=== PATIENT | female | born 1980 | race Caucasian/White ===

== ENCOUNTER 2019-03-21 07:30 | Outpatient (RCR) | payer OTHER, SELFPAY ==
--- NOTE | 2018-11-28 16:11 | PT.OIE ---
Current Diagnoses Pain in right hip (11/27/18) Stress incontinence (female) (male) (11/27/18) Other female genital prolapse (11/27/18) Provider Visit Care Team Role Provider Type Makeda Salazar DO Attending Provider Non-Staff Primary Care Provider Specialty: Medical Address: [address] [place] [address], [id number] Email: Physical Therapy Initial Evaluation PT-OP-A Visit Information Start: 11/27/18 15:45 Freq: Status: Active Protocol: Document 11/27/18 14:30 BS (Rec: 11/28/18 09:04 BS [id number]) Out-Patient Physical Therapy Visit Information Visit Information Visit Type Initial Evaluation Visit Start Time 14:30 Visit Stop Time 15:15 Total Visit Minutes 45 Visit Number 1 Evaluation Information Evaluation Date 11/27/18 PT-OP-B Current Condition Start: 11/27/18 15:45 Freq: Status: Active Protocol: Document 11/27/18 14:30 BS (Rec: 11/28/18 09:04 BS [id number]) Current Condition History of Current Condition Onset Date 10 years incontinence, 2-3 months ago R hip pain Current Complaints urinary incontinence, L hip pain History of Current Condition Pt complains of long standing urinary incontince that began around 10 years ago following the of her first child ( pt has 2 children, some vaginal tearing with 9# baby) . Pt reports that it has gradually worsened over the years and that she has leakage with coughing, sneezing, weightlifting, and running. Pt does state that she has had some constipation over the last year and has occasional painful intercouse with pain in lower abdomen, but only if after eating dairy. Pt denies a feeling of pelvic heaviness. Pt also complains of intermittent R anterior hip pain with deep squats and specifically with internal and external rotation of hip, such as with figure 4 stretch. R hip pain began 2-3 months ago with insidious onset and gradual increasing pain since. This has prevented pt from engaging in recreational weightlifting. 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 Prior Treatments and Tests Pt has been to physical therapy years ago for incontinence but has not been doing kegels because she does' t think they have helped. Xray for R hip pain, insignificant findings per pt report. Prior Functional Status Baseline Function- ADL's Independent Baseline Function- Mobility Independent Baseline Function- Work/School Independent Baseline Function- Recreation/Hobbies Independent Baseline Function- Other Independent with all daily activities but with urinary leakage for the last 10 years. Current Functional Impairments (Reported) Functional Limitations- ADL's Sitting, standing, stairs or walking without urinary leakage. 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 This is difficult for her to due to urinary incontinence. Functional Limitations- Recreation/ Pt unable to engage in Hobbies recreational exercise and weightlifting due to R hip pain and urinary incontinence. PT-OP-C Subjective Start: 11/27/18 15:45 Freq: Status: Active Protocol: Document 11/27/18 14:30 BS (Rec: 11/28/18 10:23 BS [id number]) OP-PT Subjective Patient Comments Patient Comments Pt wants states she wants to equally focus on R hip pain and stress incontinence. OP-PT Pain Assessment Pain Assessment Grid Paper Pain Assessment Grid Completed Yes Location Hip Pain Location Details R anterior hip (deep) Intensity 6 Scale Used Numeric (1 - 10) Description Sharp Frequency Intermittent Pain Aggravating Factors Changing Position Exercise Stair Climbing Bending Lifting Pain Alleviating Factors None Patient Stated Pain Goal reduce R hip pain so I can exercise! Comments Pain Comments R anterior hip pain is 0/10 at rest, but up to 6/10 with deep flexion or R hip IR/ER. PT-OP-E Functional Tests Start: 11/28/18 12:00 Freq: Status: Active Protocol: Document 11/27/18 14:30 BS (Rec: 11/28/18 12:02 BS [id number]) Functional Tests Other 1 Name of Test Double and Single Limb Squat Comment Hyperlordotic. Genuvalgum with RLE squat. PT-OP-I Pelvic Floor Start: 11/27/18 15:45 Freq: Status: Active Protocol: Document 11/27/18 14:30 AMB (Rec: 11/27/18 15:58 AMB [id number]) Pelvic Floor Assessment Urine Pelvic Floor Surgery No Leakage Size Small Leakage Cause Cough Exercise Sneeze Leaks Per Day with exercise Voiding Frequency 5x/day Nocturia 0 Pads Used In 24 Hours 1 Urine Pad Type Maxi Pad Bowel Bowel Surgery No Prolapse Cystocele Grade 2 Rectocele Grade 2 Perineal Descent Resting Absent Bearing Present Contraction Ability Voluntary Contraction Weak Voluntary Relaxation Moderate Manual Muscle Testing Left 2 Manual Muscle Testing Right 2 Manual Muscle Testing Anterior 1 Manual Muscle Testing Posterior 3 Muscle Endurance (Seconds) 8 Number of Quick Contractions In 10 6 Seconds Comments Pelvic Floor Comments Mild discomfort with palpation of R obterator internus. Does not radiate. Weak with anterior pelvic floor. PT-OP-J Posture/Palpation/Skin Start: 11/27/18 15:45 Freq: Status: Active Protocol: Document 11/27/18 14:30 BS (Rec: 11/28/18 10:23 BS [id number]) Posture Evaluation Position Standing Evaluation View Anterior/Posterior Head/C-Spine Posture Forward Head T-Spine Posture Neutral L-Spine Posture Increased Lordosis Shoulder Posture (L) Rounded (R) Rounded Pelvis Posture Anteriorly Tilted Knee Posture (L) Genu Recurvatum (R) Genu Recurvatum Comments Posture Comments Pt presents with forward head, rounded shoulder, and increased lumbar lordosis. She tends to stand with B knees in slight hyperextension. Palpation Assessment Location One Palpation Location R hip iliopsoas, rectus femoris Palpation Findings None/Normal Palpation Details No tenderness to palpation. Pt describes anterior hip pain location as deep. PT-OP-K Range of Motion Start: 11/27/18 15:45 Freq: Status: Active Protocol: Document 11/27/18 14:30 BS (Rec: 11/28/18 10:23 BS [id number]) Hip Goniometric Range of Motion Hip Measured in Degrees Right Passive Hip ROM WFL Yes Testing Position Supine Straight Leg Raise 90 Internal Rotation 32 External Rotation 25 Left Passive Hip ROM WFL Yes Testing Position Supine Straight Leg Raise 90 Internal Rotation 45 External Rotation 40 Hip ROM Limitations Comments PROM to B hips WFL and pain free with the exception of end range right hip ER/IR and R hip flexion with overpressue. Knee Goniometric Range of Motion Knee Measured in Degrees Right Patient Position Supine Left Knee ROM WFL Yes Patient Position Supine Knee ROM Limitations Comments B Knee ROM WFL and pain-free. In supine position, pt's relaxed knee position in slight hyperextension. PT-OP-L Special Tests Start: 11/27/18 15:45 Freq: Status: Active Protocol: Document 11/27/18 14:30 BS (Rec: 11/28/18 10:23 [id number]) Special Tests Hip Special Tests Straight Leg Raise Test Results Negative Comments Active and passive SLR negative for pain reproduction . Piriformis Test Results + for pain reproduction with RLE Comments Piriformis position resulted in R anterior hip pain, increased with OP. GIANA Test Results + for pain reproduction with RLE Comments Deep pain in R hip with GIANA. Limited hip abduction, ER in comparison to L hip testing. Scour Test Test Results + for pain reproduction RLE Comments Positive for pain reproduction on RLE at approximately 45 deg of ER with scour. PT-OP-M Strength Start: 11/27/18 15:45 Freq: Status: Active Protocol: Document 11/27/18 14:30 BS (Rec: 11/28/18 10:23 [id number]) Hip Strength Hip Manual Muscle Testing Right Flexion (L2) 5 Normal Extension (S1) 5 Normal Abduction 5 Normal External Rotation 4+ Good+ Internal Rotation 4+ Good+ Comments R hip discomfort with ER/IR 4+/5. Left Flexion (L2) 5 Normal Extension (S1) 5 Normal Abduction 5 Normal External Rotation 5 Normal Internal Rotation 5 Normal Comments All strong and pain-free with LLE. Knee Strength Knee Manual Muscle Testing Right Flexion (S2) 5 Normal Extension (L3) 5 Normal Comments Pain-free Left Flexion (S2) 5 Normal Extension (L3) 5 Normal Comments Pain-free PT-OP-Q Treatments Start: 11/27/18 15:45 Freq: Status: Active Protocol: Document 11/27/18 14:30 BS (Rec: 11/28/18 10:23 [id number]) Self-Care/Home Management Treatment Education Patient Education Body Mechanics Home Exercise Program Posture Other Education Pt education regarding kegel exercises with contract 2-3/ relax. Pt educated on avoiding deep hip flexion to avoid further irritation of R hip pain. PT-OP-T Assessment and Plan Start: 11/27/18 15:45 Freq: Status: Active Protocol: Document 11/27/18 14:30 BS (Rec: 11/28/18 10:23 [id number]) Physical Therapy Assessment Rehab Potential Rehabilitation Potential Good Evaluation Complexity Number of Personal Factors/Comorbidities 0 Number of Body Systems Impaired 1-2 Clinical Presentation at Evaluation Stable Impairments Impairments Activity Tolerance Functional Activities Functional Mobility Pain Posture ROM Strength Other Concerns Barriers to Rehabilitation Pt's chronic history of urinary incontinence is a potential barrier to rehabilitation. Overall, pt is young and lives an active lifestyle. She is motivated to perform necessary exercises for pelvic floor strengthening and R hip so that she is able to exercise without leakage or R hip pain. Goals Three Impairment ROM Chcf Goal (LTG) R hip ROM (ER/IR) to be pain- free and comparable to L hip ER/IR ROM to reduce pain with independent stretching program . LTG Duration 10 weeks Two STG Duration Strength Chcf Goal (LTG) Activation and strength of pelvic floor musculature to improve at least 4+/5 to reduce urinary leakage with activities that increase intrabdomial pressure. LTG Duration 10 weeks One Impairment HEP Short Term Goal (STG) Pt will become independent with HEP for pelvic floor and hip strengthening to maximize rehabilitation potential outside of formal physical therapy sessions. STG Duration 4 weeks Chcf Goal (LTG) Pt will complete a deep squat without experiencing R anterior hip pain so that she is able to return to recreational weightlifting. LTG Duration 10 weeks Assessment Summary Assessment Pt is a 38 year old female who presents with new onset R anterior hip pain and complaints of chronic (10 year ) urinary stress incontinence limitating her ability to engage in recreational weightlifting and perform daily activties without experiencing urinary leakage. Pt has limitations in R hip ROM and strength contributing to LE muscle imbalance and R hip pain. Pt appears to be young, healthy, and motivated to comply with physical therapy in order to return to PLOF without R hip pain and urinary incontinence. Pt benefits from skilled physical therapy focusing on LE and pelvic floor strengthening, postural education, and use of proper body mechanics with functional activities to address impairments as listed above. Physical Therapy Plan Frequency and Duration Frequency of Treatment 1-2x/week Duration of Treatment 10 weeks Plan of Care Start Date 11/28/18 Plan of Care End Date 02/06/19 Therapeutic Interventions Therapeutic Interventions Gait Training Home Exercise Program Joint Mobilizations Manual Therapy Neuromuscular Re-education Patient/Caregiver Education Self-Care/Home Management Soft Tissue Mobilization Taping Therapeutic Activities Therapeutic Exercises Modalities Biofeedback Cold Pack/Ice Massage Electric Stimulation Hot Packs Traction- Mechanical Next Visit Focus/Plan Next Note Type Treatment Note Next Visit Plan Continue to assess R anterior hip pain. Begin hip strengthening and pelvic floor biofeedback.
--- NOTE | 2018-12-07 09:43 | PT.OTN ---
Current Diagnoses Pain in right hip (12/06/18) Other female genital prolapse (12/06/18) Physical Therapy Treatment Note PT-OP-A Visit Information Start: 11/27/18 15:45 Freq: Status: Active Protocol: Document 12/06/18 13:45 AMB (Rec: 12/07/18 09:31 AMB [id number]) Out-Patient Physical Therapy Visit Information Visit Information Visit Type Treatment Note Visit Start Time 13:45 Visit Stop Time 15:15 Total Visit Minutes 45 Visit Number 2 PT-OP-B Current Condition Start: 11/27/18 15:45 Freq: Status: Active Protocol: Document 11/27/18 14:30 BS (Rec: 11/28/18 09:04 BS [id number]) Current Condition History of Current Condition Onset Date 10 years incontinence, 2-3 months ago R hip pain Current Complaints urinary incontinence, L hip pain History of Current Condition Pt complains of long standing urinary incontince that began around 10 years ago following the of her first child ( pt has 2 children, some vaginal tearing with 9# baby) . Pt reports that it has gradually worsened over the years and that she has leakage with coughing, sneezing, weightlifting, and running. Pt does state that she has had some constipation over the last year and has occasional painful intercouse with pain in lower abdomen, but only if after eating dairy. Pt denies a feeling of pelvic heaviness. Pt also complains of intermittent R anterior hip pain with deep squats and specifically with internal and external rotation of hip, such as with figure 4 stretch. R hip pain began 2-3 months ago with insidious onset and gradual increasing pain since. This has prevented pt from engaging in recreational weightlifting. 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 Prior Treatments and Tests Pt has been to physical therapy years ago for incontinence but has not been doing kegels because she does' t think they have helped. Xray for R hip pain, insignificant findings per pt report. Prior Functional Status Baseline Function- ADL's Independent Baseline Function- Mobility Independent Baseline Function- Work/School Independent Baseline Function- Recreation/Hobbies Independent Baseline Function- Other Independent with all daily activities but with urinary leakage for the last 10 years. Current Functional Impairments (Reported) Functional Limitations- ADL's Sitting, standing, stairs or walking without urinary leakage. 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 This is difficult for her to due to urinary incontinence. Functional Limitations- Recreation/ Pt unable to engage in Hobbies recreational exercise and weightlifting due to R hip pain and urinary incontinence. PT-OP-C Subjective Start: 11/27/18 15:45 Freq: Status: Active Protocol: Document 12/06/18 13:45 AMB (Rec: 12/07/18 09:31 AMB [id number]) OP-PT Subjective Patient Comments Patient Comments Pt has been doing well with her pelvic floor exercises. She has not been doing crossfit, but has been swimming and running. The hip has been feeling about the same. Not too irritated because not stretching into pain. PT-OP-E Functional Tests Start: 11/28/18 12:00 Freq: Status: Active Protocol: Document 11/27/18 14:30 BS (Rec: 11/28/18 12:02 BS [id number]) Functional Tests Other 1 Name of Test Double and Single Limb Squat Comment Hyperlordotic. Genuvalgum with RLE squat. PT-OP-I Pelvic Floor Start: 11/27/18 15:45 Freq: Status: Active Protocol: Document 11/27/18 14:30 AMB (Rec: 11/27/18 15:58 AMB [id number]) Pelvic Floor Assessment Urine Pelvic Floor Surgery No Leakage Size Small Leakage Cause Cough Exercise Sneeze Leaks Per Day with exercise Voiding Frequency 5x/day Nocturia 0 Pads Used In 24 Hours 1 Urine Pad Type Maxi Pad Bowel Bowel Surgery No Prolapse Cystocele Grade 2 Rectocele Grade 2 Perineal Descent Resting Absent Bearing Present Contraction Ability Voluntary Contraction Weak Voluntary Relaxation Moderate Manual Muscle Testing Left 2 Manual Muscle Testing Right 2 Manual Muscle Testing Anterior 1 Manual Muscle Testing Posterior 3 Muscle Endurance (Seconds) 8 Number of Quick Contractions In 10 6 Seconds Comments Pelvic Floor Comments Mild discomfort with palpation of R obterator internus. Does not radiate. Weak with anterior pelvic floor. PT-OP-J Posture/Palpation/Skin Start: 11/27/18 15:45 Freq: Status: Active Protocol: Document 11/27/18 14:30 BS (Rec: 11/28/18 10:23 BS [id number]) Posture Evaluation Position Standing Evaluation View Anterior/Posterior Head/C-Spine Posture Forward Head T-Spine Posture Neutral L-Spine Posture Increased Lordosis Shoulder Posture (L) Rounded (R) Rounded Pelvis Posture Anteriorly Tilted Knee Posture (L) Genu Recurvatum (R) Genu Recurvatum Comments Posture Comments Pt presents with forward head, rounded shoulder, and increased lumbar lordosis. She tends to stand with B knees in slight hyperextension. Palpation Assessment Location One Palpation Location R hip iliopsoas, rectus femoris Palpation Findings None/Normal Palpation Details No tenderness to palpation. Pt describes anterior hip pain location as deep. PT-OP-K Range of Motion Start: 11/27/18 15:45 Freq: Status: Active Protocol: Document 11/27/18 14:30 BS (Rec: 11/28/18 10:23 BS [id number]) Hip Goniometric Range of Motion Hip Measured in Degrees Right Passive Hip ROM WFL Yes Testing Position Supine Straight Leg Raise 90 Internal Rotation 32 External Rotation 25 Left Passive Hip ROM WFL Yes Testing Position Supine Straight Leg Raise 90 Internal Rotation 45 External Rotation 40 Hip ROM Limitations Comments PROM to B hips WFL and pain free with the exception of end range right hip ER/IR and R hip flexion with overpressue. Knee Goniometric Range of Motion Knee Measured in Degrees Right Patient Position Supine Left Knee ROM WFL Yes Patient Position Supine Knee ROM Limitations Comments B Knee ROM WFL and pain-free. In supine position, pt's relaxed knee position in slight hyperextension. PT-OP-L Special Tests Start: 11/27/18 15:45 Freq: Status: Active Protocol: Document 11/27/18 14:30 BS (Rec: 11/28/18 10:23 BS [id number]) Special Tests Hip Special Tests Straight Leg Raise Test Results Negative Comments Active and passive SLR negative for pain reproduction . Piriformis Test Results + for pain reproduction with RLE Comments Piriformis position resulted in R anterior hip pain, increased with OP. GIANA Test Results + for pain reproduction with RLE Comments Deep pain in R hip with GIANA. Limited hip abduction, ER in comparison to L hip testing. Scour Test Test Results + for pain reproduction RLE Comments Positive for pain reproduction on RLE at approximately 45 deg of ER with scour. PT-OP-M Strength Start: 11/27/18 15:45 Freq: Status: Active Protocol: Document 11/27/18 14:30 BS (Rec: 11/28/18 10:23 BS [id number]) Hip Strength Hip Manual Muscle Testing Right Flexion (L2) 5 Normal Extension (S1) 5 Normal Abduction 5 Normal External Rotation 4+ Good+ Internal Rotation 4+ Good+ Comments R hip discomfort with ER/IR 4+/5. Left Flexion (L2) 5 Normal Extension (S1) 5 Normal Abduction 5 Normal External Rotation 5 Normal Internal Rotation 5 Normal Comments All strong and pain-free with LLE. Knee Strength Knee Manual Muscle Testing Right Flexion (S2) 5 Normal Extension (L3) 5 Normal Comments Pain-free Left Flexion (S2) 5 Normal Extension (L3) 5 Normal Comments Pain-free PT-OP-Q Treatments Start: 11/27/18 15:45 Freq: Status: Active Protocol: Document 12/06/18 13:45 AMB (Rec: 12/07/18 09:31 AMB [id number]) Therapeutic Exercises Supine Exercises 2 Supine Exercise Name hip flexor stretch Side right Reps/Minutes 30x2 1 Supine Exercise Name Roll in roll out with PF Resistance ball, #3 t band Reps/Minutes 10 ea Comments hooklying Sidelying Exercises 2 Sidelying Exercise Name hip abduction SLR Side right Reps/Minutes 1x15 1 Sidelying Exercise Name clamshell Resistance #3 t band Reps/Minutes 2x10 Standing Exercises 1 Standing Exercise Name lateral 4 step down Reps/Minutes 2x15 Manual Therapy Treatment Soft Tissue Mobilization 1 Body Location hip flexor (R) Mobilization Type Myofascial Release Sustained Pressure Trigger Point Release Intensity/Depth Moderate Body Position Supine Other Other Manual Treatments Contract relax in prone into ER and IR PT-OP-T Assessment and Plan Start: 11/27/18 15:45 Freq: Status: Active Protocol: Document 12/06/18 13:45 AMB (Rec: 12/07/18 09:31 AMB [id number]) Physical Therapy Assessment Assessment Summary Assessment Jennifer showed good improvement of ER ROM with contract relax . Tolerated progression of pelvic floor well. Continues to have lordotic posture with her squats. Physical Therapy Plan Next Visit Focus/Plan Next Note Type Treatment Note Next Visit Plan Try pelvic floor biofeedback, continue to progress hip strengthening and ROM into external and internal rotation .
--- NOTE | 2018-12-19 16:07 | PT.OTN ---
Current Diagnoses Pain in right hip (12/19/18) Other female genital prolapse (12/19/18) Physical Therapy Treatment Note PT-OP-A Visit Information Start: 11/27/18 15:45 Freq: Status: Active Protocol: Document 12/19/18 14:30 BS (Rec: 12/19/18 16:01 BS [id number]) Out-Patient Physical Therapy Visit Information Visit Information Visit Type Treatment Note Visit Start Time 13:45 Visit Stop Time 14:30 Total Visit Minutes 45 Visit Number 3 PT-OP-B Current Condition Start: 11/27/18 15:45 Freq: Status: Active Protocol: Document 11/27/18 14:30 BS (Rec: 11/28/18 09:04 BS [id number]) Current Condition History of Current Condition Onset Date 10 years incontinence, 2-3 months ago R hip pain Current Complaints urinary incontinence, L hip pain History of Current Condition Pt complains of long standing urinary incontince that began around 10 years ago following the of her first child ( pt has 2 children, some vaginal tearing with 9# baby) . Pt reports that it has gradually worsened over the years and that she has leakage with coughing, sneezing, weightlifting, and running. Pt does state that she has had some constipation over the last year and has occasional painful intercouse with pain in lower abdomen, but only if after eating dairy. Pt denies a feeling of pelvic heaviness. Pt also complains of intermittent R anterior hip pain with deep squats and specifically with internal and external rotation of hip, such as with figure 4 stretch. R hip pain began 2-3 months ago with insidious onset and gradual increasing pain since. This has prevented pt from engaging in recreational weightlifting. 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 Prior Treatments and Tests Pt has been to physical therapy years ago for incontinence but has not been doing kegels because she does' t think they have helped. Xray for R hip pain, insignificant findings per pt report. Prior Functional Status Baseline Function- ADL's Independent Baseline Function- Mobility Independent Baseline Function- Work/School Independent Baseline Function- Recreation/Hobbies Independent Baseline Function- Other Independent with all daily activities but with urinary leakage for the last 10 years. Current Functional Impairments (Reported) Functional Limitations- ADL's Sitting, standing, stairs or walking without urinary leakage. 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 This is difficult for her to due to urinary incontinence. Functional Limitations- Recreation/ Pt unable to engage in Hobbies recreational exercise and weightlifting due to R hip pain and urinary incontinence. PT-OP-C Subjective Start: 11/27/18 15:45 Freq: Status: Active Protocol: Document 12/19/18 14:30 BS (Rec: 12/19/18 16:01 BS [id number]) OP-PT Subjective Patient Comments Patient Comments Pt apologetic for missing last apt. Hip has been feeling about the same but she hasn't pushed anything. She does notice some pain with sitting. Has not attempted to jump rope, so unsure of leakage. PT-OP-E Functional Tests Start: 11/28/18 12:00 Freq: Status: Active Protocol: Document 11/27/18 14:30 BS (Rec: 11/28/18 12:02 BS [id number]) Functional Tests Other 1 Name of Test Double and Single Limb Squat Comment Hyperlordotic. Genuvalgum with RLE squat. PT-OP-I Pelvic Floor Start: 11/27/18 15:45 Freq: Status: Active Protocol: Document 11/27/18 14:30 AMB (Rec: 11/27/18 15:58 AMB [id number]) Pelvic Floor Assessment Urine Pelvic Floor Surgery No Leakage Size Small Leakage Cause Cough Exercise Sneeze Leaks Per Day with exercise Voiding Frequency 5x/day Nocturia 0 Pads Used In 24 Hours 1 Urine Pad Type Maxi Pad Bowel Bowel Surgery No Prolapse Cystocele Grade 2 Rectocele Grade 2 Perineal Descent Resting Absent Bearing Present Contraction Ability Voluntary Contraction Weak Voluntary Relaxation Moderate Manual Muscle Testing Left 2 Manual Muscle Testing Right 2 Manual Muscle Testing Anterior 1 Manual Muscle Testing Posterior 3 Muscle Endurance (Seconds) 8 Number of Quick Contractions In 10 6 Seconds Comments Pelvic Floor Comments Mild discomfort with palpation of R obterator internus. Does not radiate. Weak with anterior pelvic floor. PT-OP-J Posture/Palpation/Skin Start: 11/27/18 15:45 Freq: Status: Active Protocol: Document 11/27/18 14:30 BS (Rec: 11/28/18 10:23 BS [id number]) Posture Evaluation Position Standing Evaluation View Anterior/Posterior Head/C-Spine Posture Forward Head T-Spine Posture Neutral L-Spine Posture Increased Lordosis Shoulder Posture (L) Rounded (R) Rounded Pelvis Posture Anteriorly Tilted Knee Posture (L) Genu Recurvatum (R) Genu Recurvatum Comments Posture Comments Pt presents with forward head, rounded shoulder, and increased lumbar lordosis. She tends to stand with B knees in slight hyperextension. Palpation Assessment Location One Palpation Location R hip iliopsoas, rectus femoris Palpation Findings None/Normal Palpation Details No tenderness to palpation. Pt describes anterior hip pain location as deep. PT-OP-K Range of Motion Start: 11/27/18 15:45 Freq: Status: Active Protocol: Document 11/27/18 14:30 BS (Rec: 11/28/18 10:23 BS [id number]) Hip Goniometric Range of Motion Hip Measured in Degrees Right Passive Hip ROM WFL Yes Testing Position Supine Straight Leg Raise 90 Internal Rotation 32 External Rotation 25 Left Passive Hip ROM WFL Yes Testing Position Supine Straight Leg Raise 90 Internal Rotation 45 External Rotation 40 Hip ROM Limitations Comments PROM to B hips WFL and pain free with the exception of end range right hip ER/IR and R hip flexion with overpressue. Knee Goniometric Range of Motion Knee Measured in Degrees Right Patient Position Supine Left Knee ROM WFL Yes Patient Position Supine Knee ROM Limitations Comments B Knee ROM WFL and pain-free. In supine position, pt's relaxed knee position in slight hyperextension. PT-OP-L Special Tests Start: 11/27/18 15:45 Freq: Status: Active Protocol: Document 11/27/18 14:30 BS (Rec: 11/28/18 10:23 BS [id number]) Special Tests Hip Special Tests Straight Leg Raise Test Results Negative Comments Active and passive SLR negative for pain reproduction . Piriformis Test Results + for pain reproduction with RLE Comments Piriformis position resulted in R anterior hip pain, increased with OP. GIANA Test Results + for pain reproduction with RLE Comments Deep pain in R hip with GIANA. Limited hip abduction, ER in comparison to L hip testing. Scour Test Test Results + for pain reproduction RLE Comments Positive for pain reproduction on RLE at approximately 45 deg of ER with scour. PT-OP-M Strength Start: 11/27/18 15:45 Freq: Status: Active Protocol: Document 11/27/18 14:30 BS (Rec: 11/28/18 10:23 BS [id number]) Hip Strength Hip Manual Muscle Testing Right Flexion (L2) 5 Normal Extension (S1) 5 Normal Abduction 5 Normal External Rotation 4+ Good+ Internal Rotation 4+ Good+ Comments R hip discomfort with ER/IR 4+/5. Left Flexion (L2) 5 Normal Extension (S1) 5 Normal Abduction 5 Normal External Rotation 5 Normal Internal Rotation 5 Normal Comments All strong and pain-free with LLE. Knee Strength Knee Manual Muscle Testing Right Flexion (S2) 5 Normal Extension (L3) 5 Normal Comments Pain-free Left Flexion (S2) 5 Normal Extension (L3) 5 Normal Comments Pain-free PT-OP-Q Treatments Start: 11/27/18 15:45 Freq: Status: Active Protocol: Document 12/19/18 14:30 BS (Rec: 12/19/18 16:01 BS [id number]) Therapeutic Exercises Supine Exercises 3 Supine Exercise Name posterior pelvic tilts Reps/Minutes x10 Comments VCs for lower TA activation 1 Supine Exercise Name roll out with PF Resistance #3 t band Reps/Minutes 2x10 Comments hooklying Sidelying Exercises 2 Sidelying Exercise Name hip abduction SLR Side bilateral Equipment Used #3 band Reps/Minutes x15 Comments added to HEP today Neuro Re-Education Treatment Other Activities 1 Details quick flicks, 5W 10 R, 10W 10R Comments baseline activity: 3.0 with max around 28-30. Good pelvic floor isolation. PT-OP-T Assessment and Plan Start: 11/27/18 15:45 Freq: Status: Active Protocol: Document 12/19/18 14:30 BS (Rec: 12/19/18 16:01 BS [email or web address]) Physical Therapy Assessment Assessment Summary Assessment Focused on pelvic floor strengthening today, pt hao's good isolation of pelvic floor musculature. She will benefit from progression next visit. Physical Therapy Plan Next Visit Focus/Plan Next Note Type Treatment Note Next Visit Plan Multi-focus exercises with pelvic floor, TA, and hip strengthening. Contract/relax and mobilizations to R hip.
--- NOTE | 2018-12-26 15:57 | PT.OTN ---
Current Diagnoses Pain in right hip (12/26/18) Other female genital prolapse (12/26/18) Physical Therapy Treatment Note PT-OP-A Visit Information Start: 11/27/18 15:45 Freq: Status: Active Protocol: Document 12/26/18 12:55 BS (Rec: 12/26/18 12:56 BS [id number]) Out-Patient Physical Therapy Visit Information Visit Information Visit Type Treatment Note Visit Start Time 13:00 Visit Stop Time 13:45 Total Visit Minutes 45 Visit Number 4 PT-OP-B Current Condition Start: 11/27/18 15:45 Freq: Status: Active Protocol: Document 11/27/18 14:30 BS (Rec: 11/28/18 09:04 BS [id number]) Current Condition History of Current Condition Onset Date 10 years incontinence, 2-3 months ago R hip pain Current Complaints urinary incontinence, L hip pain History of Current Condition Pt complains of long standing urinary incontince that began around 10 years ago following the of her first child ( pt has 2 children, some vaginal tearing with 9# baby) . Pt reports that it has gradually worsened over the years and that she has leakage with coughing, sneezing, weightlifting, and running. Pt does state that she has had some constipation over the last year and has occasional painful intercouse with pain in lower abdomen, but only if after eating dairy. Pt denies a feeling of pelvic heaviness. Pt also complains of intermittent R anterior hip pain with deep squats and specifically with internal and external rotation of hip, such as with figure 4 stretch. R hip pain began 2-3 months ago with insidious onset and gradual increasing pain since. This has prevented pt from engaging in recreational weightlifting. 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 Prior Treatments and Tests Pt has been to physical therapy years ago for incontinence but has not been doing kegels because she does' t think they have helped. Xray for R hip pain, insignificant findings per pt report. Prior Functional Status Baseline Function- ADL's Independent Baseline Function- Mobility Independent Baseline Function- Work/School Independent Baseline Function- Recreation/Hobbies Independent Baseline Function- Other Independent with all daily activities but with urinary leakage for the last 10 years. Current Functional Impairments (Reported) Functional Limitations- ADL's Sitting, standing, stairs or walking without urinary leakage. 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 This is difficult for her to due to urinary incontinence. Functional Limitations- Recreation/ Pt unable to engage in Hobbies recreational exercise and weightlifting due to R hip pain and urinary incontinence. PT-OP-C Subjective Start: 11/27/18 15:45 Freq: Status: Active Protocol: Document 12/26/18 12:55 BS (Rec: 12/26/18 12:56 BS [id number]) OP-PT Subjective Patient Comments Patient Comments Pt has been doing HEP for pelvic floor and hip strengthening. She has no new complaints today. PT-OP-E Functional Tests Start: 11/28/18 12:00 Freq: Status: Active Protocol: Document 11/27/18 14:30 BS (Rec: 11/28/18 12:02 BS [id number]) Functional Tests Other 1 Name of Test Double and Single Limb Squat Comment Hyperlordotic. Genuvalgum with RLE squat. PT-OP-I Pelvic Floor Start: 11/27/18 15:45 Freq: Status: Active Protocol: Document 11/27/18 14:30 AMB (Rec: 11/27/18 15:58 AMB [id number]) Pelvic Floor Assessment Urine Pelvic Floor Surgery No Leakage Size Small Leakage Cause Cough Exercise Sneeze Leaks Per Day with exercise Voiding Frequency 5x/day Nocturia 0 Pads Used In 24 Hours 1 Urine Pad Type Maxi Pad Bowel Bowel Surgery No Prolapse Cystocele Grade 2 Rectocele Grade 2 Perineal Descent Resting Absent Bearing Present Contraction Ability Voluntary Contraction Weak Voluntary Relaxation Moderate Manual Muscle Testing Left 2 Manual Muscle Testing Right 2 Manual Muscle Testing Anterior 1 Manual Muscle Testing Posterior 3 Muscle Endurance (Seconds) 8 Number of Quick Contractions In 10 6 Seconds Comments Pelvic Floor Comments Mild discomfort with palpation of R obterator internus. Does not radiate. Weak with anterior pelvic floor. PT-OP-J Posture/Palpation/Skin Start: 11/27/18 15:45 Freq: Status: Active Protocol: Document 11/27/18 14:30 BS (Rec: 11/28/18 10:23 BS [id number]) Posture Evaluation Position Standing Evaluation View Anterior/Posterior Head/C-Spine Posture Forward Head T-Spine Posture Neutral L-Spine Posture Increased Lordosis Shoulder Posture (L) Rounded (R) Rounded Pelvis Posture Anteriorly Tilted Knee Posture (L) Genu Recurvatum (R) Genu Recurvatum Comments Posture Comments Pt presents with forward head, rounded shoulder, and increased lumbar lordosis. She tends to stand with B knees in slight hyperextension. Palpation Assessment Location One Palpation Location R hip iliopsoas, rectus femoris Palpation Findings None/Normal Palpation Details No tenderness to palpation. Pt describes anterior hip pain location as deep. PT-OP-K Range of Motion Start: 11/27/18 15:45 Freq: Status: Active Protocol: Document 11/27/18 14:30 BS (Rec: 11/28/18 10:23 BS [id number]) Hip Goniometric Range of Motion Hip Measured in Degrees Right Passive Hip ROM WFL Yes Testing Position Supine Straight Leg Raise 90 Internal Rotation 32 External Rotation 25 Left Passive Hip ROM WFL Yes Testing Position Supine Straight Leg Raise 90 Internal Rotation 45 External Rotation 40 Hip ROM Limitations Comments PROM to B hips WFL and pain free with the exception of end range right hip ER/IR and R hip flexion with overpressue. Knee Goniometric Range of Motion Knee Measured in Degrees Right Patient Position Supine Left Knee ROM WFL Yes Patient Position Supine Knee ROM Limitations Comments B Knee ROM WFL and pain-free. In supine position, pt's relaxed knee position in slight hyperextension. PT-OP-L Special Tests Start: 11/27/18 15:45 Freq: Status: Active Protocol: Document 11/27/18 14:30 BS (Rec: 11/28/18 10:23 BS [id number]) Special Tests Hip Special Tests Straight Leg Raise Test Results Negative Comments Active and passive SLR negative for pain reproduction . Piriformis Test Results + for pain reproduction with RLE Comments Piriformis position resulted in R anterior hip pain, increased with OP. GIANA Test Results + for pain reproduction with RLE Comments Deep pain in R hip with GIANA. Limited hip abduction, ER in comparison to L hip testing. Scour Test Test Results + for pain reproduction RLE Comments Positive for pain reproduction on RLE at approximately 45 deg of ER with scour. PT-OP-M Strength Start: 11/27/18 15:45 Freq: Status: Active Protocol: Document 11/27/18 14:30 BS (Rec: 11/28/18 10:23 BS [id number]) Hip Strength Hip Manual Muscle Testing Right Flexion (L2) 5 Normal Extension (S1) 5 Normal Abduction 5 Normal External Rotation 4+ Good+ Internal Rotation 4+ Good+ Comments R hip discomfort with ER/IR 4+/5. Left Flexion (L2) 5 Normal Extension (S1) 5 Normal Abduction 5 Normal External Rotation 5 Normal Internal Rotation 5 Normal Comments All strong and pain-free with LLE. Knee Strength Knee Manual Muscle Testing Right Flexion (S2) 5 Normal Extension (L3) 5 Normal Comments Pain-free Left Flexion (S2) 5 Normal Extension (L3) 5 Normal Comments Pain-free PT-OP-Q Treatments Start: 11/27/18 15:45 Freq: Status: Active Protocol: Document 12/26/18 12:55 BS (Rec: 12/26/18 14:34 BS [id number]) Therapeutic Exercises Supine Exercises 3 Supine Exercise Name posterior pelvic tilts Reps/Minutes x20 Comments VCs for lower TA activation Sidelying Exercises 2 Sidelying Exercise Name hip abduction SLR Side bilateral Equipment Used #3 band Reps/Minutes x20 1 Sidelying Exercise Name clamshell Side right Resistance #3 t band Reps/Minutes 2x10 Standing Exercises 6 Standing Exercise Name Single Leg Lift Side bilateral Equipment Used 4# DBs Reps/Minutes x10 each Comments VCs for flat back, hip hinge, and slight knee flexion. 5 Standing Exercise Name Hip Hinge Equipment Used no weight Reps/Minutes x10 Comments external cue with yard stick maintaining 3 pts of contact 4 Standing Exercise Name Miki Lift Equipment Used 4# DBs Reps/Minutes x10 Comments VCs to avoid lumbar lordosis and rounding at shoulders. 3 Standing Exercise Name Sidestepping Equipment Used #3 band Reps/Minutes 10' Comments knees slightly bent 2 Standing Exercise Name Monster Walk Resistance #3 band Reps/Minutes 10' Other Exercises 3 Other Exercise Name Alternating Arms/legs Side bilateral Reps/Minutes x8 each Comments TA contraction. TCs for neutral spine and to avoid pelvic rotation 2 Other Exercise Name Quadruped Rock Backs Side right Equipment Used mobilization belt Reps/Minutes x15 Comments inferior mobilization R hip 1 Other Exercise Name Kneeling Hip Flexor Stretch Side right Equipment Used mobilization belt Reps/Minutes 3x20 Comments with inferior mobiliztion Manual Therapy Treatment Soft Tissue Mobilization 1 Body Location hip flexor (R) Mobilization Type Myofascial Release Sustained Pressure Trigger Point Release Intensity/Depth Moderate Body Position Supine Comments Supine and L sidelying with sustained pressure over R iliacus and psoas major. Joint Mobilizations 1 Joint R hip Direction inferior Grade III Comments inferior mobilization grade III-IV with quadruped rock backs and half kneeling hip flexor stretch. Other Other Manual Treatments Contract relax in prone into R hip ER and IR. PT-OP-T Assessment and Plan Start: 11/27/18 15:45 Freq: Status: Active Protocol: Document 12/26/18 12:55 BS (Rec: 12/26/18 15:29 BS [id number]) Physical Therapy Assessment Assessment Summary Assessment PT today consisted of core stabilization in combination with pelvic floor strengthening, hip mobilization and strengthening , as well as posture education to reduce excessive lordosis. Added resisted monster walk and sidestepping to HEP. Physical Therapy Plan Next Visit Focus/Plan Next Note Type Treatment Note Next Visit Plan Continue to progress core stabilization, pelvic floor strengthening, and mobilizations for R hip impingement. Continue to work on posture awareness to reduce lumbar lordosis.
--- NOTE | 2019-01-02 15:21 | PT.OTN ---
Current Diagnoses Pain in right hip (01/02/19) Other female genital prolapse (01/02/19) Physical Therapy Treatment Note PT-OP-A Visit Information Start: 11/27/18 15:45 Freq: Status: Active Protocol: Document 01/02/19 13:00 AMB (Rec: 01/02/19 15:21 AMB [id number]) Out-Patient Physical Therapy Visit Information Visit Information Visit Type Treatment Note Visit Start Time 13:00 Visit Stop Time 13:45 Total Visit Minutes 45 Visit Number 5 PT-OP-B Current Condition Start: 11/27/18 15:45 Freq: Status: Active Protocol: Document 11/27/18 14:30 BS (Rec: 11/28/18 09:04 BS [id number]) Current Condition History of Current Condition Onset Date 10 years incontinence, 2-3 months ago R hip pain Current Complaints urinary incontinence, L hip pain History of Current Condition Pt complains of long standing urinary incontince that began around 10 years ago following the of her first child ( pt has 2 children, some vaginal tearing with 9# baby) . Pt reports that it has gradually worsened over the years and that she has leakage with coughing, sneezing, weightlifting, and running. Pt does state that she has had some constipation over the last year and has occasional painful intercouse with pain in lower abdomen, but only if after eating dairy. Pt denies a feeling of pelvic heaviness. Pt also complains of intermittent R anterior hip pain with deep squats and specifically with internal and external rotation of hip, such as with figure 4 stretch. R hip pain began 2-3 months ago with insidious onset and gradual increasing pain since. This has prevented pt from engaging in recreational weightlifting. 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 Prior Treatments and Tests Pt has been to physical therapy years ago for incontinence but has not been doing kegels because she does' t think they have helped. Xray for R hip pain, insignificant findings per pt report. Prior Functional Status Baseline Function- ADL's Independent Baseline Function- Mobility Independent Baseline Function- Work/School Independent Baseline Function- Recreation/Hobbies Independent Baseline Function- Other Independent with all daily activities but with urinary leakage for the last 10 years. Current Functional Impairments (Reported) Functional Limitations- ADL's Sitting, standing, stairs or walking without urinary leakage. 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 This is difficult for her to due to urinary incontinence. Functional Limitations- Recreation/ Pt unable to engage in Hobbies recreational exercise and weightlifting due to R hip pain and urinary incontinence. PT-OP-C Subjective Start: 11/27/18 15:45 Freq: Status: Active Protocol: Document 01/02/19 13:00 AMB (Rec: 01/02/19 15:21 AMB [id number]) OP-PT Subjective Patient Comments Patient Comments Pt states pelvic floor is going well, but still feels hip impingement. PT-OP-E Functional Tests Start: 11/28/18 12:00 Freq: Status: Active Protocol: Document 11/27/18 14:30 BS (Rec: 11/28/18 12:02 BS [id number]) Functional Tests Other 1 Name of Test Double and Single Limb Squat Comment Hyperlordotic. Genuvalgum with RLE squat. PT-OP-I Pelvic Floor Start: 11/27/18 15:45 Freq: Status: Active Protocol: Document 11/27/18 14:30 AMB (Rec: 11/27/18 15:58 AMB [id number]) Pelvic Floor Assessment Urine Pelvic Floor Surgery No Leakage Size Small Leakage Cause Cough Exercise Sneeze Leaks Per Day with exercise Voiding Frequency 5x/day Nocturia 0 Pads Used In 24 Hours 1 Urine Pad Type Maxi Pad Bowel Bowel Surgery No Prolapse Cystocele Grade 2 Rectocele Grade 2 Perineal Descent Resting Absent Bearing Present Contraction Ability Voluntary Contraction Weak Voluntary Relaxation Moderate Manual Muscle Testing Left 2 Manual Muscle Testing Right 2 Manual Muscle Testing Anterior 1 Manual Muscle Testing Posterior 3 Muscle Endurance (Seconds) 8 Number of Quick Contractions In 10 6 Seconds Comments Pelvic Floor Comments Mild discomfort with palpation of R obterator internus. Does not radiate. Weak with anterior pelvic floor. PT-OP-J Posture/Palpation/Skin Start: 11/27/18 15:45 Freq: Status: Active Protocol: Document 11/27/18 14:30 BS (Rec: 11/28/18 10:23 BS [id number]) Posture Evaluation Position Standing Evaluation View Anterior/Posterior Head/C-Spine Posture Forward Head T-Spine Posture Neutral L-Spine Posture Increased Lordosis Shoulder Posture (L) Rounded (R) Rounded Pelvis Posture Anteriorly Tilted Knee Posture (L) Genu Recurvatum (R) Genu Recurvatum Comments Posture Comments Pt presents with forward head, rounded shoulder, and increased lumbar lordosis. She tends to stand with B knees in slight hyperextension. Palpation Assessment Location One Palpation Location R hip iliopsoas, rectus femoris Palpation Findings None/Normal Palpation Details No tenderness to palpation. Pt describes anterior hip pain location as deep. PT-OP-K Range of Motion Start: 11/27/18 15:45 Freq: Status: Active Protocol: Document 11/27/18 14:30 BS (Rec: 11/28/18 10:23 BS [id number]) Hip Goniometric Range of Motion Hip Measured in Degrees Right Passive Hip ROM WFL Yes Testing Position Supine Straight Leg Raise 90 Internal Rotation 32 External Rotation 25 Left Passive Hip ROM WFL Yes Testing Position Supine Straight Leg Raise 90 Internal Rotation 45 External Rotation 40 Hip ROM Limitations Comments PROM to B hips WFL and pain free with the exception of end range right hip ER/IR and R hip flexion with overpressue. Knee Goniometric Range of Motion Knee Measured in Degrees Right Patient Position Supine Left Knee ROM WFL Yes Patient Position Supine Knee ROM Limitations Comments B Knee ROM WFL and pain-free. In supine position, pt's relaxed knee position in slight hyperextension. PT-OP-L Special Tests Start: 11/27/18 15:45 Freq: Status: Active Protocol: Document 11/27/18 14:30 BS (Rec: 11/28/18 10:23 BS [id number]) Special Tests Hip Special Tests Straight Leg Raise Test Results Negative Comments Active and passive SLR negative for pain reproduction . Piriformis Test Results + for pain reproduction with RLE Comments Piriformis position resulted in R anterior hip pain, increased with OP. GIANA Test Results + for pain reproduction with RLE Comments Deep pain in R hip with GIANA. Limited hip abduction, ER in comparison to L hip testing. Scour Test Test Results + for pain reproduction RLE Comments Positive for pain reproduction on RLE at approximately 45 deg of ER with scour. PT-OP-M Strength Start: 11/27/18 15:45 Freq: Status: Active Protocol: Document 11/27/18 14:30 BS (Rec: 11/28/18 10:23 BS [id number]) Hip Strength Hip Manual Muscle Testing Right Flexion (L2) 5 Normal Extension (S1) 5 Normal Abduction 5 Normal External Rotation 4+ Good+ Internal Rotation 4+ Good+ Comments R hip discomfort with ER/IR 4+/5. Left Flexion (L2) 5 Normal Extension (S1) 5 Normal Abduction 5 Normal External Rotation 5 Normal Internal Rotation 5 Normal Comments All strong and pain-free with LLE. Knee Strength Knee Manual Muscle Testing Right Flexion (S2) 5 Normal Extension (L3) 5 Normal Comments Pain-free Left Flexion (S2) 5 Normal Extension (L3) 5 Normal Comments Pain-free PT-OP-Q Treatments Start: 11/27/18 15:45 Freq: Status: Active Protocol: Document 01/02/19 13:00 AMB (Rec: 01/02/19 15:21 AMB [id number]) Therapeutic Exercises Supine Exercises 4 Supine Exercise Name hip flexor stretch Reps/Minutes 30x2 Standing Exercises 7 Standing Exercise Name lateral lunge Reps/Minutes 2x10 Manual Therapy Treatment Soft Tissue Mobilization 1 Body Location hip flexor (R) Mobilization Type Myofascial Release Sustained Pressure Trigger Point Release Intensity/Depth Moderate Body Position Supine Comments Supine and L sidelying with sustained pressure over R iliacus and psoas major. Joint Mobilizations 1 Joint R hip Direction inferior Grade III Comments inferior mobilization grade III-IV with quadruped rock backs and half kneeling hip flexor stretch. Other Other Manual Treatments Contract relax in prone into R hip ER and IR. PT-OP-T Assessment and Plan Start: 11/27/18 15:45 Freq: Status: Active Protocol: Document 01/02/19 13:00 AMB (Rec: 01/02/19 15:21 AMB [id number]) Physical Therapy Assessment Assessment Summary Assessment Pt continues to improve with manual therapy, but improvement is short lived, and then impingement sx return quickly with abd/ ER combo or IR. Physical Therapy Plan Next Visit Focus/Plan Next Note Type Treatment Note Next Visit Plan Continue to progress core stabilization, pelvic floor strengthening, and mobilizations for R hip impingement. Continue to work on posture awareness to reduce lumbar lordosis.
--- NOTE | 2019-02-25 11:05 | PT.OTN ---
Current Diagnoses Pain in right hip (02/25/19) Other female genital prolapse (02/25/19) Physical Therapy Treatment Note PT-OP-A Visit Information Start: 11/27/18 15:45 Freq: Status: Active Protocol: Document 02/25/19 09:45 AMB (Rec: 02/25/19 10:38 AMB [id number]) Out-Patient Physical Therapy Visit Information Visit Information Visit Type Treatment Note Visit Start Time 09:45 Visit Stop Time 10:30 Total Visit Minutes 45 Visit Number 6 PT-OP-B Current Condition Start: 11/27/18 15:45 Freq: Status: Active Protocol: Document 11/27/18 14:30 BS (Rec: 11/28/18 09:04 BS [id number]) Current Condition History of Current Condition Onset Date 10 years incontinence, 2-3 months ago R hip pain Current Complaints urinary incontinence, L hip pain History of Current Condition Pt complains of long standing urinary incontince that began around 10 years ago following the of her first child ( pt has 2 children, some vaginal tearing with 9# baby) . Pt reports that it has gradually worsened over the years and that she has leakage with coughing, sneezing, weightlifting, and running. Pt does state that she has had some constipation over the last year and has occasional painful intercouse with pain in lower abdomen, but only if after eating dairy. Pt denies a feeling of pelvic heaviness. Pt also complains of intermittent R anterior hip pain with deep squats and specifically with internal and external rotation of hip, such as with figure 4 stretch. R hip pain began 2-3 months ago with insidious onset and gradual increasing pain since. This has prevented pt from engaging in recreational weightlifting. 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 Prior Treatments and Tests Pt has been to physical therapy years ago for incontinence but has not been doing kegels because she does' t think they have helped. Xray for R hip pain, insignificant findings per pt report. Prior Functional Status Baseline Function- ADL's Independent Baseline Function- Mobility Independent Baseline Function- Work/School Independent Baseline Function- Recreation/Hobbies Independent Baseline Function- Other Independent with all daily activities but with urinary leakage for the last 10 years. Current Functional Impairments (Reported) Functional Limitations- ADL's Sitting, standing, stairs or walking without urinary leakage. 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 This is difficult for her to due to urinary incontinence. Functional Limitations- Recreation/ Pt unable to engage in Hobbies recreational exercise and weightlifting due to R hip pain and urinary incontinence. PT-OP-C Subjective Start: 11/27/18 15:45 Freq: Status: Active Protocol: Document 02/25/19 09:45 AMB (Rec: 02/25/19 10:38 AMB [id number]) OP-PT Subjective Patient Comments Patient Comments Pt feels that reducing lumbar lordosis is helping with her hip. She did go on a run and that hurt her bilateral knees. The swimming has been going well. PT-OP-E Functional Tests Start: 11/28/18 12:00 Freq: Status: Active Protocol: Document 11/27/18 14:30 BS (Rec: 11/28/18 12:02 BS [id number]) Functional Tests Other 1 Name of Test Double and Single Limb Squat Comment Hyperlordotic. Genuvalgum with RLE squat. PT-OP-I Pelvic Floor Start: 11/27/18 15:45 Freq: Status: Active Protocol: Document 11/27/18 14:30 AMB (Rec: 11/27/18 15:58 AMB [id number]) Pelvic Floor Assessment Urine Pelvic Floor Surgery No Leakage Size Small Leakage Cause Cough Exercise Sneeze Leaks Per Day with exercise Voiding Frequency 5x/day Nocturia 0 Pads Used In 24 Hours 1 Urine Pad Type Maxi Pad Bowel Bowel Surgery No Prolapse Cystocele Grade 2 Rectocele Grade 2 Perineal Descent Resting Absent Bearing Present Contraction Ability Voluntary Contraction Weak Voluntary Relaxation Moderate Manual Muscle Testing Left 2 Manual Muscle Testing Right 2 Manual Muscle Testing Anterior 1 Manual Muscle Testing Posterior 3 Muscle Endurance (Seconds) 8 Number of Quick Contractions In 10 6 Seconds Comments Pelvic Floor Comments Mild discomfort with palpation of R obterator internus. Does not radiate. Weak with anterior pelvic floor. PT-OP-J Posture/Palpation/Skin Start: 11/27/18 15:45 Freq: Status: Active Protocol: Document 11/27/18 14:30 BS (Rec: 11/28/18 10:23 BS [id number]) Posture Evaluation Position Standing Evaluation View Anterior/Posterior Head/C-Spine Posture Forward Head T-Spine Posture Neutral L-Spine Posture Increased Lordosis Shoulder Posture (L) Rounded (R) Rounded Pelvis Posture Anteriorly Tilted Knee Posture (L) Genu Recurvatum (R) Genu Recurvatum Comments Posture Comments Pt presents with forward head, rounded shoulder, and increased lumbar lordosis. She tends to stand with B knees in slight hyperextension. Palpation Assessment Location One Palpation Location R hip iliopsoas, rectus femoris Palpation Findings None/Normal Palpation Details No tenderness to palpation. Pt describes anterior hip pain location as deep. PT-OP-K Range of Motion Start: 11/27/18 15:45 Freq: Status: Active Protocol: Document 11/27/18 14:30 BS (Rec: 11/28/18 10:23 BS [id number]) Hip Goniometric Range of Motion Hip Right Passive Hip ROM WFL Yes Testing Position Supine Straight Leg Raise 90 Internal Rotation 32 External Rotation 25 Left Passive Hip ROM WFL Yes Testing Position Supine Straight Leg Raise 90 Internal Rotation 45 External Rotation 40 Hip ROM Limitations Comments PROM to B hips WFL and pain free with the exception of end range right hip ER/IR and R hip flexion with overpressue. Knee Goniometric Range of Motion Knee Right Patient Position Supine Left Knee ROM WFL Yes Patient Position Supine Knee ROM Limitations Comments B Knee ROM WFL and pain-free. In supine position, pt's relaxed knee position in slight hyperextension. PT-OP-L Special Tests Start: 11/27/18 15:45 Freq: Status: Active Protocol: Document 11/27/18 14:30 BS (Rec: 11/28/18 10:23 BS [id number]) Special Tests Hip Special Tests Straight Leg Raise Test Results Negative Comments Active and passive SLR negative for pain reproduction . Piriformis Test Results + for pain reproduction with RLE Comments Piriformis position resulted in R anterior hip pain, increased with OP. GIANA Test Results + for pain reproduction with RLE Comments Deep pain in R hip with GIANA. Limited hip abduction, ER in comparison to L hip testing. Scour Test Test Results + for pain reproduction RLE Comments Positive for pain reproduction on RLE at approximately 45 deg of ER with scour. PT-OP-M Strength Start: 11/27/18 15:45 Freq: Status: Active Protocol: Document 11/27/18 14:30 BS (Rec: 11/28/18 10:23 BS [id number]) Hip Strength Hip Manual Muscle Testing Right Flexion (L2) 5 Normal Extension (S1) 5 Normal Abduction 5 Normal External Rotation 4+ Good+ Internal Rotation 4+ Good+ Comments R hip discomfort with ER/IR 4+/5. Left Flexion (L2) 5 Normal Extension (S1) 5 Normal Abduction 5 Normal External Rotation 5 Normal Internal Rotation 5 Normal Comments All strong and pain-free with LLE. Knee Strength Knee Manual Muscle Testing Right Flexion (S2) 5 Normal Extension (L3) 5 Normal Comments Pain-free Left Flexion (S2) 5 Normal Extension (L3) 5 Normal Comments Pain-free PT-OP-Q Treatments Start: 11/27/18 15:45 Freq: Status: Active Protocol: Document 02/25/19 09:00 AMB (Rec: 02/25/19 11:01 [facility] [id number]) Therapeutic Exercises Sidelying Exercises 2 Sidelying Exercise Name side plank with hip abd Reps/Minutes 5 ea Standing Exercises 7 Standing Exercise Name lateral lunge Reps/Minutes 2x10 1 Standing Exercise Name squat form Resistance overhead bar, wall, Reps/Minutes 15 min Comments avoid lumbar lordosis Manual Therapy Treatment Soft Tissue Mobilization 1 Body Location hip flexor (R) Mobilization Type Myofascial Release Sustained Pressure Trigger Point Release Intensity/Depth Moderate Body Position Supine Comments Supine and L sidelying with sustained pressure over R iliacus and psoas major. PT-OP-T Assessment and Plan Start: 11/27/18 15:45 Freq: Status: Active Protocol: Document 02/25/19 09:00 AMB (Rec: 02/25/19 11:01 AMB [id number]) Physical Therapy Assessment Goals Three Impairment ROM Telecommunications Engineer Goal (LTG) R hip ROM (ER/IR) to be pain- free and comparable to L hip ER/IR ROM to reduce pain with independent stretching program . LTG Duration NOT MET YET, PROGRESS MADE Two STG Duration Strength Correction Goal (LTG) Activation and strength of pelvic floor musculature to improve at least 4+/5 to reduce urinary leakage with activities that increase intrabdomial pressure. LTG Duration 10 weeks One Impairment HEP Short Term Goal (STG) Pt will become independent with HEP for pelvic floor and hip strengthening to maximize rehabilitation potential outside of formal physical therapy sessions. STG Duration PROGRESS MADE Correction Goal (LTG) Pt will complete a deep squat without experiencing R anterior hip pain so that she is able to return to recreational weightlifting. LTG Duration MET Assessment Summary Assessment Jennifer has noticed some improvements in her symptoms as far as her hip, but continues to notice pressure with sitting jeronimo cross applesauce. Her pelvic floor has improved and she can do short jumps without leaking. No leaks with her most recent run. She is concerned about her hip if she returns to crossfit. Physical Therapy Plan Frequency and Duration Frequency of Treatment 1x/Week Duration of Treatment 8 weeks Plan of Care Start Date 02/25/19 Plan of Care End Date 04/22/19 Therapeutic Interventions Therapeutic Interventions Aquatic Therapy Gait Training Home Exercise Program Joint Mobilizations Manual Therapy Neuromuscular Re-education Self-Care/Home Management Therapeutic Activities Therapeutic Exercises Modalities Biofeedback Next Visit Focus/Plan Next Note Type Treatment Note Next Visit Plan Progress lateral hip stability , squat form
--- NOTE | 2019-02-25 11:06 | PT.OPPOC ---
Current Diagnoses Pain in right hip (02/25/19) Other female genital prolapse (02/25/19) Provider Visit Care Team Role Provider Type Makeda Salazar DO Attending Provider Non-Staff Primary Care Provider Specialty: Medical Address: [address] [place] [address], [id number] Email: Plan Of Care PT-OP-T Assessment and Plan Start: 11/27/18 15:45 Freq: Status: Active Protocol: Document 02/25/19 09:00 AMB (Rec: 02/25/19 11:01 AMB [id number]) Physical Therapy Assessment Goals Three Impairment ROM Director Of Radiology Goal (LTG) R hip ROM (ER/IR) to be pain- free and comparable to L hip ER/IR ROM to reduce pain with independent stretching program . LTG Duration NOT MET YET, PROGRESS MADE Two STG Duration Strength Jail Goal (LTG) Activation and strength of pelvic floor musculature to improve at least 4+/5 to reduce urinary leakage with activities that increase intrabdomial pressure. LTG Duration 10 weeks One Impairment HEP Short Term Goal (STG) Pt will become independent with HEP for pelvic floor and hip strengthening to maximize rehabilitation potential outside of formal physical therapy sessions. STG Duration PROGRESS MADE Director Of Radiology Goal (LTG) Pt will complete a deep squat without experiencing R anterior hip pain so that she is able to return to recreational weightlifting. LTG Duration MET Assessment Summary Assessment Jennifer has noticed some improvements in her symptoms as far as her hip, but continues to notice pressure with sitting jeronimo cross applesauce. Her pelvic floor has improved and she can do short jumps without leaking. No leaks with her most recent run. She is concerned about her hip if she returns to crossfit. Physical Therapy Plan Frequency and Duration Frequency of Treatment 1x/Week Duration of Treatment 8 weeks Plan of Care Start Date 02/25/19 Plan of Care End Date 04/22/19 Therapeutic Interventions Therapeutic Interventions Aquatic Therapy Gait Training Home Exercise Program Joint Mobilizations Manual Therapy Neuromuscular Re-education Self-Care/Home Management Therapeutic Activities Therapeutic Exercises Modalities Biofeedback Next Visit Focus/Plan Next Note Type Treatment Note Next Visit Plan Progress lateral hip stability , squat form Plan of Care Dates Plan of Care Start Date 02/25/19 Plan of Care End Date 09/02/19 Please Sign and Return: I have reviewed this Plan of Care and certify that the skilled therapy services above are required to meet the patient?s needs. Physician Signature Date Printed Name and Credentials Clinical Instructor Signature Printed Name and Credentials
--- NOTE | 2019-03-21 16:35 | PT.OTN ---
Current Diagnoses Pain in right hip (03/21/19) Other female genital prolapse (03/21/19) Physical Therapy Treatment Note PT-OP-A Visit Information Start: 11/27/18 15:45 Freq: Status: Active Protocol: Document 03/21/19 07:30 AMB (Rec: 03/25/19 16:23 AMB [email or web address]) Out-Patient Physical Therapy Visit Information Visit Information Visit Type Discharge Summary Visit Start Time 07:40 Visit Stop Time 08:15 Total Visit Minutes 35 Visit Number 7 PT-OP-B Current Condition Start: 11/27/18 15:45 Freq: Status: Active Protocol: Document 11/27/18 14:30 BS (Rec: 11/28/18 09:04 BS [id number]) Current Condition History of Current Condition Onset Date 10 years incontinence, 2-3 months ago R hip pain Current Complaints urinary incontinence, L hip pain History of Current Condition Pt complains of long standing urinary incontince that began around 10 years ago following the of her first child ( pt has 2 children, some vaginal tearing with 9# baby) . Pt reports that it has gradually worsened over the years and that she has leakage with coughing, sneezing, weightlifting, and running. Pt does state that she has had some constipation over the last year and has occasional painful intercouse with pain in lower abdomen, but only if after eating dairy. Pt denies a feeling of pelvic heaviness. Pt also complains of intermittent R anterior hip pain with deep squats and specifically with internal and external rotation of hip, such as with figure 4 stretch. R hip pain began 2-3 months ago with insidious onset and gradual increasing pain since. This has prevented pt from engaging in recreational weightlifting. 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 Prior Treatments and Tests Pt has been to physical therapy years ago for incontinence but has not been doing kegels because she does' t think they have helped. Xray for R hip pain, insignificant findings per pt report. Prior Functional Status Baseline Function- ADL's Independent Baseline Function- Mobility Independent Baseline Function- Work/School Independent Baseline Function- Recreation/Hobbies Independent Baseline Function- Other Independent with all daily activities but with urinary leakage for the last 10 years. Current Functional Impairments (Reported) Functional Limitations- ADL's Sitting, standing, stairs or walking without urinary leakage. 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 This is difficult for her to due to urinary incontinence. Functional Limitations- Recreation/ Pt unable to engage in Hobbies recreational exercise and weightlifting due to R hip pain and urinary incontinence. PT-OP-C Subjective Start: 11/27/18 15:45 Freq: Status: Active Protocol: Document 03/21/19 07:30 AMB (Rec: 03/25/19 16:23 AMB [email or web address]) OP-PT Subjective Patient Comments Patient Comments Pt is doing well. Feels that the only time she feels hip pain is with sitting jeronimo cross apple sauce. PT-OP-E Functional Tests Start: 11/28/18 12:00 Freq: Status: Active Protocol: Document 11/27/18 14:30 BS (Rec: 11/28/18 12:02 BS [id number]) Functional Tests Other 1 Name of Test Double and Single Limb Squat Comment Hyperlordotic. Genuvalgum with RLE squat. PT-OP-I Pelvic Floor Start: 11/27/18 15:45 Freq: Status: Active Protocol: Document 11/27/18 14:30 AMB (Rec: 11/27/18 15:58 AMB [id number]) Pelvic Floor Assessment Urine Pelvic Floor Surgery No Leakage Size Small Leakage Cause Cough Exercise Sneeze Leaks Per Day with exercise Voiding Frequency 5x/day Nocturia 0 Pads Used In 24 Hours 1 Urine Pad Type Maxi Pad Bowel Bowel Surgery No Prolapse Cystocele Grade 2 Rectocele Grade 2 Perineal Descent Resting Absent Bearing Present Contraction Ability Voluntary Contraction Weak Voluntary Relaxation Moderate Manual Muscle Testing Left 2 Manual Muscle Testing Right 2 Manual Muscle Testing Anterior 1 Manual Muscle Testing Posterior 3 Muscle Endurance (Seconds) 8 Number of Quick Contractions In 10 6 Seconds Comments Pelvic Floor Comments Mild discomfort with palpation of R obterator internus. Does not radiate. Weak with anterior pelvic floor. PT-OP-J Posture/Palpation/Skin Start: 11/27/18 15:45 Freq: Status: Active Protocol: Document 11/27/18 14:30 BS (Rec: 11/28/18 10:23 BS [id number]) Posture Evaluation Position Standing Evaluation View Anterior/Posterior Head/C-Spine Posture Forward Head T-Spine Posture Neutral L-Spine Posture Increased Lordosis Shoulder Posture (L) Rounded (R) Rounded Pelvis Posture Anteriorly Tilted Knee Posture (L) Genu Recurvatum (R) Genu Recurvatum Comments Posture Comments Pt presents with forward head, rounded shoulder, and increased lumbar lordosis. She tends to stand with B knees in slight hyperextension. Palpation Assessment Location One Palpation Location R hip iliopsoas, rectus femoris Palpation Findings None/Normal Palpation Details No tenderness to palpation. Pt describes anterior hip pain location as deep. PT-OP-K Range of Motion Start: 11/27/18 15:45 Freq: Status: Active Protocol: Document 11/27/18 14:30 BS (Rec: 11/28/18 10:23 BS [id number]) Hip Goniometric Range of Motion Hip Right Passive Hip ROM WFL Yes Testing Position Supine Straight Leg Raise 90 Internal Rotation 32 External Rotation 25 Left Passive Hip ROM WFL Yes Testing Position Supine Straight Leg Raise 90 Internal Rotation 45 External Rotation 40 Hip ROM Limitations Comments PROM to B hips WFL and pain free with the exception of end range right hip ER/IR and R hip flexion with overpressue. Knee Goniometric Range of Motion Knee Right Patient Position Supine Left Knee ROM WFL Yes Patient Position Supine Knee ROM Limitations Comments B Knee ROM WFL and pain-free. In supine position, pt's relaxed knee position in slight hyperextension. PT-OP-L Special Tests Start: 11/27/18 15:45 Freq: Status: Active Protocol: Document 11/27/18 14:30 BS (Rec: 11/28/18 10:23 BS [id number]) Special Tests Hip Special Tests Straight Leg Raise Test Results Negative Comments Active and passive SLR negative for pain reproduction . Piriformis Test Results + for pain reproduction with RLE Comments Piriformis position resulted in R anterior hip pain, increased with OP. GIANA Test Results + for pain reproduction with RLE Comments Deep pain in R hip with GIANA. Limited hip abduction, ER in comparison to L hip testing. Scour Test Test Results + for pain reproduction RLE Comments Positive for pain reproduction on RLE at approximately 45 deg of ER with scour. PT-OP-M Strength Start: 11/27/18 15:45 Freq: Status: Active Protocol: Document 11/27/18 14:30 BS (Rec: 11/28/18 10:23 BS [id number]) Hip Strength Hip Manual Muscle Testing Right Flexion (L2) 5 Normal Extension (S1) 5 Normal Abduction 5 Normal External Rotation 4+ Good+ Internal Rotation 4+ Good+ Comments R hip discomfort with ER/IR 4+/5. Left Flexion (L2) 5 Normal Extension (S1) 5 Normal Abduction 5 Normal External Rotation 5 Normal Internal Rotation 5 Normal Comments All strong and pain-free with LLE. Knee Strength Knee Manual Muscle Testing Right Flexion (S2) 5 Normal Extension (L3) 5 Normal Comments Pain-free Left Flexion (S2) 5 Normal Extension (L3) 5 Normal Comments Pain-free PT-OP-Q Treatments Start: 11/27/18 15:45 Freq: Status: Active Protocol: Document 03/21/19 07:30 AMB (Rec: 03/27/19 16:35 AMB [email or web address]) Therapeutic Exercises Sidelying Exercises 2 Sidelying Exercise Name side plank with hip abd Reps/Minutes 5 ea 1 Sidelying Exercise Name reverse clamshell Resistance #3 t band Standing Exercises 7 Standing Exercise Name lateral lunge Reps/Minutes 2x10 1 Standing Exercise Name squat form Resistance overhead bar, wall, Reps/Minutes 15 min Comments avoid lumbar lordosis Manual Therapy Treatment Soft Tissue Mobilization 1 Body Location hip flexor (R) Mobilization Type Myofascial Release Sustained Pressure Trigger Point Release Intensity/Depth Moderate Body Position Supine Comments Supine and L sidelying with sustained pressure over R iliacus and psoas major. Other Other Manual Treatments Contract relax in prone into R hip ER and IR. PT-OP-T Assessment and Plan Start: 11/27/18 15:45 Freq: Status: Active Protocol: Document 03/21/19 07:30 AMB (Rec: 03/27/19 16:35 AMB [email or web address]) Physical Therapy Assessment Goals Three Impairment ROM Forest Examiner Goal (LTG) R hip ROM (ER/IR) to be pain- free and comparable to L hip ER/IR ROM to reduce pain with independent stretching program . LTG Duration MET Two STG Duration Strength Forest Examiner Goal (LTG) Activation and strength of pelvic floor musculature to improve at least 4+/5 to reduce urinary leakage with activities that increase intrabdomial pressure. LTG Duration MET One Impairment HEP Short Term Goal (STG) Pt will become independent with HEP for pelvic floor and hip strengthening to maximize rehabilitation potential outside of formal physical therapy sessions. STG Duration MET Jail Goal (LTG) Pt will complete a deep squat without experiencing R anterior hip pain so that she is able to return to recreational weightlifting. LTG Duration MET Assessment Summary Assessment Jennifer has met her goals in PT . She can perform all exercises without hip pain or leaking. She has not tried long distance running, but is sprinting and that is going well. She can still feel her hip when she sits jeronimo cross apple sauce. She is ready to be discharged from PT and continue with her HEP at this time. Physical Therapy Plan Discharge Physical Therapy Discharge Reasons Goals Met
--- NOTE | 2019-03-27 16:35 | PT.OPDS ---
Current Diagnoses Pain in right hip (03/21/19) Other female genital prolapse (03/21/19) Provider Visit Care Team Role Provider Type Makeda Salazar DO Attending Provider Non-Staff Primary Care Provider Specialty: Medical Address: [address] [place] [address], [id number] Email: Visit Number Visit Number 7 Discharge Summary PT-OP-B Current Condition Start: 11/27/18 15:45 Freq: Status: Active Protocol: Document 11/27/18 14:30 BS (Rec: 11/28/18 09:04 BS [id number]) Current Condition History of Current Condition Onset Date 10 years incontinence, 2-3 months ago R hip pain Current Complaints urinary incontinence, L hip pain History of Current Condition Pt complains of long standing urinary incontince that began around 10 years ago following the of her first child ( pt has 2 children, some vaginal tearing with 9# baby) . Pt reports that it has gradually worsened over the years and that she has leakage with coughing, sneezing, weightlifting, and running. Pt does state that she has had some constipation over the last year and has occasional painful intercouse with pain in lower abdomen, but only if after eating dairy. Pt denies a feeling of pelvic heaviness. Pt also complains of intermittent R anterior hip pain with deep squats and specifically with internal and external rotation of hip, such as with figure 4 stretch. R hip pain began 2-3 months ago with insidious onset and gradual increasing pain since. This has prevented pt from engaging in recreational weightlifting. 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 Prior Treatments and Tests Pt has been to physical therapy years ago for incontinence but has not been doing kegels because she does' t think they have helped. Xray for R hip pain, insignificant findings per pt report. Prior Functional Status Baseline Function- ADL's Independent Baseline Function- Mobility Independent Baseline Function- Work/School Independent Baseline Function- Recreation/Hobbies Independent Baseline Function- Other Independent with all daily activities but with urinary leakage for the last 10 years. Current Functional Impairments (Reported) Functional Limitations- ADL's Sitting, standing, stairs or walking without urinary leakage. 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 This is difficult for her to due to urinary incontinence. Functional Limitations- Recreation/ Pt unable to engage in Hobbies recreational exercise and weightlifting due to R hip pain and urinary incontinence. PT-OP-C Subjective Start: 11/27/18 15:45 Freq: Status: Active Protocol: Document 03/21/19 07:30 AMB (Rec: 03/25/19 16:23 AMB [email or web address]) OP-PT Subjective Patient Comments Patient Comments Pt is doing well. Feels that the only time she feels hip pain is with sitting jeronimo cross apple sauce. PT-OP-E Functional Tests Start: 11/28/18 12:00 Freq: Status: Active Protocol: Document 11/27/18 14:30 BS (Rec: 11/28/18 12:02 BS [id number]) Functional Tests Other 1 Name of Test Double and Single Limb Squat Comment Hyperlordotic. Genuvalgum with RLE squat. PT-OP-I Pelvic Floor Start: 11/27/18 15:45 Freq: Status: Active Protocol: Document 11/27/18 14:30 AMB (Rec: 11/27/18 15:58 AMB [id number]) Pelvic Floor Assessment Urine Pelvic Floor Surgery No Leakage Size Small Leakage Cause Cough Exercise Sneeze Leaks Per Day with exercise Voiding Frequency 5x/day Nocturia 0 Pads Used In 24 Hours 1 Urine Pad Type Maxi Pad Bowel Bowel Surgery No Prolapse Cystocele Grade 2 Rectocele Grade 2 Perineal Descent Resting Absent Bearing Present Contraction Ability Voluntary Contraction Weak Voluntary Relaxation Moderate Manual Muscle Testing Left 2 Manual Muscle Testing Right 2 Manual Muscle Testing Anterior 1 Manual Muscle Testing Posterior 3 Muscle Endurance (Seconds) 8 Number of Quick Contractions In 10 6 Seconds Comments Pelvic Floor Comments Mild discomfort with palpation of R obterator internus. Does not radiate. Weak with anterior pelvic floor. PT-OP-J Posture/Palpation/Skin Start: 11/27/18 15:45 Freq: Status: Active Protocol: Document 11/27/18 14:30 BS (Rec: 11/28/18 10:23 BS [id number]) Posture Evaluation Position Standing Evaluation View Anterior/Posterior Head/C-Spine Posture Forward Head T-Spine Posture Neutral L-Spine Posture Increased Lordosis Shoulder Posture (L) Rounded (R) Rounded Pelvis Posture Anteriorly Tilted Knee Posture (L) Genu Recurvatum (R) Genu Recurvatum Comments Posture Comments Pt presents with forward head, rounded shoulder, and increased lumbar lordosis. She tends to stand with B knees in slight hyperextension. Palpation Assessment Location One Palpation Location R hip iliopsoas, rectus femoris Palpation Findings None/Normal Palpation Details No tenderness to palpation. Pt describes anterior hip pain location as deep. PT-OP-K Range of Motion Start: 11/27/18 15:45 Freq: Status: Active Protocol: Document 11/27/18 14:30 BS (Rec: 11/28/18 10:23 BS [id number]) Hip Goniometric Range of Motion Hip Right Passive Hip ROM WFL Yes Testing Position Supine Straight Leg Raise 90 Internal Rotation 32 External Rotation 25 Left Passive Hip ROM WFL Yes Testing Position Supine Straight Leg Raise 90 Internal Rotation 45 External Rotation 40 Hip ROM Limitations Comments PROM to B hips WFL and pain free with the exception of end range right hip ER/IR and R hip flexion with overpressue. Knee Goniometric Range of Motion Knee Right Patient Position Supine Left Knee ROM WFL Yes Patient Position Supine Knee ROM Limitations Comments B Knee ROM WFL and pain-free. In supine position, pt's relaxed knee position in slight hyperextension. PT-OP-L Special Tests Start: 11/27/18 15:45 Freq: Status: Active Protocol: Document 11/27/18 14:30 BS (Rec: 11/28/18 10:23 BS [id number]) Special Tests Hip Special Tests Straight Leg Raise Test Results Negative Comments Active and passive SLR negative for pain reproduction . Piriformis Test Results + for pain reproduction with RLE Comments Piriformis position resulted in R anterior hip pain, increased with OP. GIANA Test Results + for pain reproduction with RLE Comments Deep pain in R hip with GIANA. Limited hip abduction, ER in comparison to L hip testing. Scour Test Test Results + for pain reproduction RLE Comments Positive for pain reproduction on RLE at approximately 45 deg of ER with scour. PT-OP-M Strength Start: 11/27/18 15:45 Freq: Status: Active Protocol: Document 11/27/18 14:30 BS (Rec: 11/28/18 10:23 BS [id number]) Hip Strength Hip Manual Muscle Testing Right Flexion (L2) 5 Normal Extension (S1) 5 Normal Abduction 5 Normal External Rotation 4+ Good+ Internal Rotation 4+ Good+ Comments R hip discomfort with ER/IR 4+/5. Left Flexion (L2) 5 Normal Extension (S1) 5 Normal Abduction 5 Normal External Rotation 5 Normal Internal Rotation 5 Normal Comments All strong and pain-free with LLE. Knee Strength Knee Manual Muscle Testing Right Flexion (S2) 5 Normal Extension (L3) 5 Normal Comments Pain-free Left Flexion (S2) 5 Normal Extension (L3) 5 Normal Comments Pain-free PT-OP-T Assessment and Plan Start: 11/27/18 15:45 Freq: Status: Active Protocol: Document 03/21/19 07:30 AMB (Rec: 03/27/19 16:35 AMB [email or web address]) Physical Therapy Assessment Goals Three Impairment ROM Fpc Goal (LTG) R hip ROM (ER/IR) to be pain- free and comparable to L hip ER/IR ROM to reduce pain with independent stretching program . LTG Duration MET Two STG Duration Strength Fpc Goal (LTG) Activation and strength of pelvic floor musculature to improve at least 4+/5 to reduce urinary leakage with activities that increase intrabdomial pressure. LTG Duration MET One Impairment HEP Short Term Goal (STG) Pt will become independent with HEP for pelvic floor and hip strengthening to maximize rehabilitation potential outside of formal physical therapy sessions. STG Duration MET Broom Man Goal (LTG) Pt will complete a deep squat without experiencing R anterior hip pain so that she is able to return to recreational weightlifting. LTG Duration MET Assessment Summary Assessment Jennifer has met her goals in PT . She can perform all exercises without hip pain or leaking. She has not tried long distance running, but is sprinting and that is going well. She can still feel her hip when she sits jeronimo cross apple sauce. She is ready to be discharged from PT and continue with her HEP at this time. Physical Therapy Plan Discharge Physical Therapy Discharge Reasons Goals Met
== END 2019-04-03 14:10 | disposition home or self-care (01) ==
LOC: PHYS 07:30
PROVIDERS: PCP Family Medicine; Visit Provider Family Medicine
DX: M25.551 Pain in right hip (principal); N81.89 Other female genital prolapse
CPT/HCPCS: 97110; 97112; 97140; 97161

== ENCOUNTER → 2024-04-03 09:33 | Outpatient (CLI) | payer OTHER, SELFPAY ==
[2024-04-03 10:50] LABS: Add Manual Diff / Slide Review NO; Basophils Absolute Auto 100 /uL (0-100); Basophils Percent Auto 1.8 % (0-2); Eosinophils Absolute Auto 200 /uL (0-450); Eosinophils Percent Auto 2.8 % (2-4); Hemoglobin 12.8 g/dL (12.0-16.0); Lymphocytes Absolute Auto 1700 /uL (1100-4500); Lymphocytes Percent Auto 30.9 % (25-40); Mean Corpuscular HGB Conc 33.6 % (30-36); Mean Corpuscular Volume 89.4 fL (80-100); Monocytes Absolute Auto 500 /uL (0-900); Monocytes Percent Auto 8.8 % (3-14); Neutrophils Absolute Auto 3100 /uL (1500-7000); Neutrophils Percent Auto 55.7 % (50-75); Platelet Count 280 X10^3/uL (150-400); Red Blood Cell Count 4.25 X10^6/uL (4.0-5.2); Red Cell Distribution Width 13.3 % (11.6-14.8); White Blood Cell Count 5.5 X10^3/uL (4.5-11.0)
[2024-04-03 11:05] LABS: Alanine Aminotransferase 15 IU/L (<35); Albumin 4.5 g/dL (3.5-5.0); Albumin Globulin Ratio 1.8 (1.0-2.8); Alkaline Phosphatase 41 U/L (38-126); Aspartate Aminotransferase 20 IU/L (14-36); BUN Creatinine Ratio 22.5 (6-22); Bilirubin Total 0.9 mg/dL (0.2-1.3); Blood Urea Nitrogen 20 mg/dL (7-17); Calcium 9.1 mg/dL (8.4-10.2); Carbon Dioxide 24 mmol/L (22-32); Chloride 104 mmol/L (98-107); Cholesterol 138 mg/dL (140-199); Estimated Glomerular Filt Rate > 60 mL/min (>60); Globulin 2.5 g/dL (1.7-4.1); Glucose 87 mg/dL (70-100); HDL Cholesterol 52 mg/dL (40-60); HEMOLYSIS < 15 (0-50); LDL Cholesterol Calculated 78 mg/dL (<100); Potassium 4.3 mmol/L (3.4-5.1); Sodium 135 mmol/L (137-145); Triglycerides 41 mg/dL (35-150)
[2024-04-03 11:23] LABS: Prolactin 10.7 ng/mL (3.0-18.6)
[2024-04-03 11:38] LABS: TSH w/ Reflex to FT4 2.61 uIU/mL (0.47-4.68)
== END ==
LOC: LAB 09:34
PROVIDERS: PCP Family Medicine; Referring Provider Family Medicine; Visit Provider Family Medicine
DX: Z13.6 Encounter for screening for cardiovascular disorders (principal); R53.83 Other fatigue; N95.1 Menopausal and female climacteric states
CPT/HCPCS: 36415; 80053; 80061; 82397; 84146; 84443; 85025

== ENCOUNTER → 2024-04-23 13:08 | Outpatient (CLI) | payer OTHER, SELFPAY ==
--- NOTE | 2024-04-23 | DI.MG.S_ITS ---
BILATERAL DIGITAL SCREENING MAMMOGRAM 3D/2D WITH CAD WITH AUGMENTATION: 04/23/2024 CLINICAL: Routine screening. Family history of breast cancer. Comparison is made to exams dated: 08/09/2021 mammogram, 07/30/2021 mammogram, and 09/10/2020 mammogram - out side. Both breasts are heterogeneously dense, which may obscure small masses (category c / 51-75% glandular tissue). Current study was also evaluated with a Computer Aided Detection (CAD) system. Bilateral breast implants are stable. No significant masses, calcifications, or other findings are seen in either breast. There has been no significant interval change. IMPRESSION: NEGATIVE There is no mammographic evidence of malignancy. A 1 year screening mammogram is recommended. Based on Tyrer-Cuzick model (a risk assessment model), the patient's lifetime risk is 27.4% and her 10 year risk is 5.3%. If a patient has an elevated risk, a more comprehensive evaluation should be considered and/or a referral to a genetic counselor. The [place] [employer], [employer], and NCCN Guidelines advise the consideration of Breast MRI as an adjunct to screening mammography in patients whose Lifetime risk to develop breast cancer is 20% or higher. This exam was interpreted at Station ID: [id number]. NOTE: For mammograms, a report in lay terms will be sent to the patient. Approximately 15% of breast malignancies will not be visualized mammographically. In the management of a palpable breast mass, a negative mammogram must not discourage biopsy of a clinically suspicious lesion. Electronically Signed By: Tito abel/clifton:04/23/2024 13:42:11 letter sent: Normal Exam ACR BI-RADS Category 1: Negative [id number]
== END ==
PROVIDERS: PCP Family Medicine; Referring Provider Family Medicine; Visit Provider Family Medicine
DX: Z12.31 Encounter for screening mammogram for malignant neoplasm of breast (principal); R92.333 Mammographic heterogeneous density, bilateral breasts; Z80.3 Family history of malignant neoplasm of breast
CPT/HCPCS: 77063; 77067

== ENCOUNTER → 2024-06-17 13:01 | Outpatient (CLI) | payer OTHER, SELFPAY ==
--- NOTE | 2024-06-17 13:02 | DI.MRI.S_ITS ---
PROCEDURE: MR BREAST BI WO/W CON INDICATIONS: Dense breast tissue TECHNIQUE: The patient was placed prone in a dedicated breast imaging coil. Precontrast axial STIR and 3D FLASH without fat saturation sequences were obtained. Both before and after bolus injection of contrast, sequential 1-minute axial 3D FLASH with fat saturation sequences for 3 time points, with subtraction images and maximum intensity projections (MIP's) generated. Delayed sagittal FLASH images with fat saturation were also obtained. Computer-aided detection, including computer algorithm analysis of MRI image data for lesion detection and characterization, pharmacokinetic analysis, with further physician review for interpretation, was performed. COMPARISON: Outside Facility, RG, MRI BREAST BILATERAL W / WO CONTRAST, 08/02/2021, 11:49. FINDINGS: Image quality: Diagnostic. There is moderate background parenchymal enhancement. The breasts are heterogeneously dense. Right breast: No suspicious mass or non mass enhancement. Left breast: No suspicious mass or non mass enhancement. Miscellaneous: Bilateral breast implants are present. This is not a dedicated implant study. There are prominent bilateral axillary lymph nodes, overall with normal fatty hilum morphology. These are indeterminate but may be reactive. The partially visualized anterior lungs and mediastinum are unremarkable. The partially visualized upper abdomen is unremarkable. IMPRESSION: No suspicious findings in either breast. There are prominent bilateral axillary lymph nodes, not enlarged by size criteria, and with overall normal morphology and fatty hilum. These are indeterminate and may be reactive. Consider clinical evaluation Recommend continued mammographic and supplemental MRI screening BIRADS 2 COMMENT: The imaging literature indicates that a negative contrast breast MRI examination has a high sensitivity and a moderate specificity for detecting and excluding invasive carcinomas to a detection threshold of 3-5 mm; nonetheless, appropriate clinical and mammographic follow-up are recommended. MRI is not sensitive for detecting DCIS (ductal carcinoma in situ) and may not detect large invasive neoplasms that show only minimal enhancement such as mucinous carcinoma. If there are suspicious calcifications or clinically worrisome palpable masses, then biopsy should still be considered. Invasive neoplasms can be hidden by co-existent and benign enhancement caused by mastitis, hormone therapy effects, radiation therapy, , and recent biopsy or surgery. False positive examinations can occur in a number of circumstances, including breasts that have recently been subject to invasive procedures and those that contain atypical ductal hyperplasia, hormonally stimulated glandular tissue, fat necrosis, or radial scars. Dictated by: Tree Gibson M.D. on 06/18/2024 at 9:57 Approved by: Tree Gibson M.D. on 06/18/2024 at 10:18
== END ==
PROVIDERS: PCP Family Medicine; Referring Provider Family Medicine; Visit Provider Family Medicine
DX: R92.8 Other abnormal and inconclusive findings on diagnostic imaging of breast (principal); R92.30 Dense breasts, unspecified; Z98.82 Breast implant status
CPT/HCPCS: 77049; A9579

== ENCOUNTER → 2024-09-12 13:36 | Outpatient (CLI) | payer OTHER, SELFPAY ==
--- NOTE | 2024-09-12 13:37 | DI.US.S_ITS ---
ULTRASOUND OF RIGHT BREAST AND AXILLA: 09/12/2024 CLINICAL: Abnormal MRI. Comparison is made to exams dated: 06/17/2024 breast MRI, 04/23/2024 mammogram - [facility], 08/09/2021 mammogram, 08/02/2021 breast MRI, 07/30/2021 mammogram, and 09/10/2020 mammogram - out side. Color flow ultrasound of the right breast axilla was performed. Parr scale images of the real-time examination were reviewed. There are normal lymph nodes in the right axilla. No significant abnormalities were seen sonographically in the right axilla. IMPRESSION: BENIGN There is no sonographic evidence of malignancy in the right axilla. Return to annual mammogram screening schedule is recommended. Additionally, patient has an elevated lifetime risk for breast cancer of greater than 20%. Recommend consideration for screening breast MRI as an adjunct to screening mammography. Findings and recommendations were conveyed to the patient during today's evaluation. This exam was interpreted at Station ID: [id number]. Electronically Signed By: Krish Proctor M.D. at/:09/12/2024 14:42:02 letter sent: Normal Exam ACR BI-RADS Category 2: Benign
--- NOTE | 2024-09-12 13:37 | DI.US.S_ITS ---
ULTRASOUND OF LEFT BREAST AND AXILLA: 09/12/2024 CLINICAL: Abnormal MRI. Comparison is made to exams dated: 06/17/2024 breast MRI, 04/23/2024 mammogram - [facility], 08/09/2021 mammogram, 08/02/2021 breast MRI, 07/30/2021 mammogram, and 09/10/2020 mammogram - out side. Color flow and real-time ultrasound of the left breast axilla were performed. Parr scale images of the real-time examination were reviewed. There are normal lymph nodes in the left axilla that correlate with breast MRI. No significant abnormalities were seen sonographically in the left axilla. IMPRESSION: BENIGN There is no sonographic evidence of malignancy. Normal left axillary lymph nodes visualized. Return to annual mammogram screening schedule is recommended. Additionally, patient has an elevated lifetime risk for breast cancer of greater than 20%. Recommend consideration for screening breast MRI as an adjunct to screening mammography. Findings and recommendations were conveyed to the patient during today's evaluation. This exam was interpreted at Station ID: [id number]. Electronically Signed By: Krish Prcotor M.D. aty/:09/12/2024 14:49:41 letter sent: Normal Exam ACR BI-RADS Category 2: Benign
== END ==
PROVIDERS: PCP Family Medicine; Referring Provider Family Medicine; Visit Provider Family Medicine
DX: R92.8 Other abnormal and inconclusive findings on diagnostic imaging of breast (principal); R59.0 Localized enlarged lymph nodes
CPT/HCPCS: 76882

== ENCOUNTER → 2024-10-04 13:35 | Outpatient (CLI) | payer OTHER, SELFPAY ==
[2024-10-04 20:01] LABS: Follicle Stimulating Hormone 4.13 mIU/mL; Luteinizing Hormone 0.322 mIU/mL
[2024-10-08 20:10] LABS: Estrogen 155 pg/mL (.)
== END ==
LOC: LAB 13:36
PROVIDERS: PCP Family Medicine; Referring Provider Family Medicine; Visit Provider Family Medicine
DX: Z02.1 Encounter for pre-employment examination (principal); N95.1 Menopausal and female climacteric states
CPT/HCPCS: 36415; 82672; 83001; 83002; 86735; 86762; 86765

== ENCOUNTER → 2025-06-09 14:17 | Outpatient (CLI) | payer OTHER, SELFPAY ==
--- NOTE | 2025-06-09 14:18 | DI.US.S_ITS ---
PROCEDURE: US PERIPH VENOUS UP EXTREM RT INDICATIONS: jugular vein enlargement, possible varix TECHNIQUE: Real-time imaging, as well as color and pulse Doppler interrogation, was performed of the upper extremity deep veins from the inferior neck to the antecubital fossa. COMPARISON: None. FINDINGS: The internal jugular vein, visualized portions of the subclavian vein, axillary, and brachial veins are free of intraluminal thrombus. Where physically possible, the veins are normally compressible. Color and pulse Doppler demonstrate normal intraluminal flow, with expected phasicity and pulsatility. Additional scanning of the cephalic and basilic veins of the superficial system demonstrates normal compressibility, without thrombus. IMPRESSION: No findings of upper extremity deep venous thrombosis can be seen. Dictated by: Eduard Barth M.D. on 06/09/2025 at 15:01 Approved by: Eduard Barth M.D. on 06/09/2025 at 15:02
--- NOTE | 2025-06-09 14:19 | DI.MG.S_ITS ---
MM screening mammo implant BI: 06/09/2025. BI-RADS: 2 CLINICAL: 45-year old female for bilateral screening mammogram. Tyrer-Cuzick lifetime risk of 23.7%. Current reported family history of breast cancer: mother. The patient has bilateral implants. PRIOR EXAMS 09/12/2024, 06/17/2024, 04/23/2024. MAMMOGRAPHY TECHNIQUE: 2D and 3D (tomosynthesis) digital mammographic views obtained, with additional images as needed for full coverage. Current study was also evaluated with a Computer Aided Detection (CAD) system. DENSITY C. The breasts are heterogeneously dense, which may obscure small masses. IMPLANTS Breast implants present. MAMMOGRAPHY FINDINGS Bilateral: There are no suspicious masses, calcifications, or other findings in the breast. IMPRESSION: * No evidence of malignancy with benign findings. RECOMMENDATIONS Bilateral * According to the Tyrer-Cuzick Risk Assessment Model, based on the information provided your patient has a greater than 20% lifetime risk for developing breast cancer. Consider supplemental screening with breast MRI and participation in a high risk screening program. * Annual screening mammography. OVERALL ASSESSMENT CATEGORY BI-RADS-2: Benign. The [employer] recommends annual screening mammography beginning at age 40 for women with average risk of breast cancer. ELECTRONICALLY SIGNED: Krish Proctor M.D. on 06/09/2025 at 05:30:56 PM PT Interpreting Station ID: [id number]
== END ==
LOC: MAMMO 14:18
PROVIDERS: PCP Family Medicine; Referring Provider Family Medicine; Visit Provider Family Medicine
DX: R09.89 Other specified symptoms and signs involving the circulatory and respiratory systems (principal); R92.333 Mammographic heterogeneous density, bilateral breasts; Z98.82 Breast implant status; Z80.3 Family history of malignant neoplasm of breast
CPT/HCPCS: 77063; 77067; 93971